=== PATIENT | female | born 1955 | race Caucasian/White ===

== ENCOUNTER 2024-04-07 17:36 | Emergency (ER) | payer MEDICARE, OTHER, SELFPAY ==
[2024-04-07 17:47] VITALS: BP 155/79
--- NOTE | 2024-04-07 18:46 | ED.GENMED ---
History of Present Illness
General
Chief Complaint: Abdominal Pain
Source: patient
Time Seen by Provider: 04/07/24 18:26
History of Present Illness
History of Present Illness:
68-year-old female with past medical history of GERD and hypothyroidism presenting to the ER at the request of her primary care provider for evaluation of right-sided abdominal pain that started earlier this morning accompanied with 1 episode of
nonbloody nonbilious emesis, symptoms continued into the afternoon and primary care wanted patient to be evaluated for possible appendicitis. Patient states at present time her pain is about a 2 out of 10. Denies any nausea currently. She denies
any urinary symptoms, bowel changes, fevers or infectious symptoms or any other concerns. She did not take anything for pain prior to arrival. No other concerns at this time.
Past History
Past History
ED Past Medical History: GERD and Hypothyroidism
ED Past Surgical History: Orthopedic and Other
Social History
Tobacco: Non-smoker
Alcohol: None
Drug: None
Personal:
Living: with family
Phy Exam
Physical Exam
Physical Exam:
GENERAL: Alert , in no apparent distress
EYE: clear conjunctiva b/l
HEAD: NCAT
ENT: mmm.
CARDIAC: Regular rate and rhythm .
LUNGS: Clear breath sounds bilaterally, no acute respiratory distress, no wheezes/rales/rhonchi
ABDOMEN: Soft, without focal tenderness, no r/g, no cvat, negative Winston sign, no tenderness at McBurney's point
NEUROLOGICAL: Alert and oriented
SKIN: Warm and dry, skin intact.
MUSCULOSKELETAL: well perfused.
PSYCH: Normal and appropriate interaction.
Scores
Heart Failure Risk
Heart Failure Risk Score: Not Applicable
Heart Score for Chest Pain Patients
STEMI patient?: Not applicable
Withdrawal Assessment of Alcohol
Withdrawal Assessment Completed?: Not applicable
Course
Orders/Labs/Results
Orders:
Orders
04/07/24 18:28
CT Abd/Pel (IV only)-[facility] only Urgent
Comment:
Reason For Exam: right sided abd pain, vomiting
04/07/24 18:57
Complete Blood Count/With Diff Urgent
Comprehensive Metabolic Panel Urgent
Lipase Urgent
UA Reflex to Culture [Urinalysis Reflex To Culture] Urgent
Date Specimen was Collected: 04/07/24
Time Specimen was Collected: 18:57
Urine Microscopic Reflex Cult Urgent
04/07/24 19:50
0.9% Sodium Chloride 1000 ml [Nss] 1,000 ml IV BOLUS
04/07/24 21:18
Ketorolac [Toradol] 30 mg IV NOW STA
04/07/24 21:35
Tamsulosin [Flomax] 0.4 mg PO NOW STA
Abnormal Lab Results
04/07/24
18:57
WBC 11.9 H 10^3/uL
(4.8-10.8)
Hgb 11.7 L g/dL
(12.0-16.0)
Hct 35.8 L %
(37.0-47.0)
MCV 73.7 L fL
(81.0-99.0)
MCH 24.1 L pg
(27.0-31.0)
MCHC 32.7 L g/dL
(33.0-37.0)
RDW 17.4 H %
(11.5-14.5)
Absolute Neuts (auto) 10.3 H 10^3/uL
(1.4-6.5)
Absolute Lymphs (auto) 0.9 L 10^3/uL
(1.2-3.4)
Neutrophils % 86.7 H %
(42.2-75.2)
Lymphocytes % 7.3 L %
(20.5-51.1)
BUN 19 H mg/dl
(7-17)
Creatinine 1.1 H mg/dL
(0.6-1.0)
Glucose 120 H mg/dl
(70-99)
Calcium 10.5 H mg/dl
(8.4-10.2)
Urine Ketones 1+ A
(Negative)
Ur Occult Blood Reflex 1+ A
(Negative)
Urine RBC 3-6 A /HPF
(0-2)
Urine Bacteria (Reflex) Few A
(Negative)
04/07/24 18:57
04/07/24 18:57
Vital Signs
Initial and Last Documented VS:
Initial Vital Signs
Temp Pulse Resp BP Pulse Ox
98.0 F 65 18 155/79 98
04/07/24 17:47 04/07/24 17:47 04/07/24 17:47 04/07/24 17:47 04/07/24 17:47
Last Documented Vital Signs
Temp Pulse Resp BP Pulse Ox
98.0 F 69 25 139/68 95
04/07/24 17:47 04/07/24 21:39 04/07/24 21:39 04/07/24 21:39 04/07/24 21:30
MDM/Problems Addressed
Differential Diagnosis Includes:
Appendicitis, renal/ureteral colic, cholecystitis, diverticulitis
MDM/Problems Addressed:
68-year-old female presenting to the emergency department for evaluation of abdominal pain that started earlier today accompanied with 1 episode of nonbloody nonbilious emesis. At time of my exam patient's symptoms seem to be improved. She denies
any nausea and is noting pain is mostly resolved. She is declining anything for symptoms at this time. Will obtain a CT scan to further evaluate. Reassessment and disposition pending.
*Radiology
Radiology exam reviewed: radiology read reviewed
*Pulse Oximetry
Patient hypoxic: no
*Critical Care Note
Total Time (30-74mins, 75-104mins- exclusive of procedures): Not Applicable
Comment
Comment:
Patient's labs reveal a mild leukocytosis as well as mild ALFONZO. 1 L of IV fluids ordered. CT pending. Disposition pending.
Patient Management
Escalation/DeEscalation of care consider admission/obs:
Patient CT scan shows a 3 mm right UVJ stone with mild right hydronephrosis. Noted a little bit of increased back pain following CT so 30 mg Toradol IV was ordered. Patient states she feels comfortable to be discharged home. Patient was a tablet
of Flomax prior to discharge. Percocet, Flomax and Zofran were sent as prescriptions to patient's pharmacy. Information for urology was provided. Return precautions discussed. Stable for discharge home.
ED Attending Note
-
Portions of this chart may have been created with voice recognition software.� Occasional wrong word or��sound alike� substitutions may have occurred due to the inherent limitations of voice recognition software.
Discharge Plan
Departure
Patient Disposition: Home (Routine Discharge)
Date of Disposition: 04/07/24
Time of Disposition: 21:35
Patient with high blood pressure during this ER visit?: Yes
Discharge Problem:
Ureterolithiasis
Instructions: Kidney Stones (DC)
Prescriptions:
New
tamsulosin [Flomax] 0.4 mg capsule
0.4 mg PO DAILY Qty: 15 0RF
oxycodone-acetaminophen [Percocet] 5-325 mg tablet
1 tab PO Q6HPRN PRN (Reason: pain) Qty: 5 0RF
ondansetron 4 mg tablet,disintegrating
4 mg PO TIDPRN PRN (Reason: nausea/vomiting) Qty: 10 0RF
Referrals:
Pelon Agrawal DO [Family Provider] -
Justino Mars MD [Active] -
Interventions
Interventions:
*Risk Screen - Suicide Last Done: 04/07/24 18:48
*General Assessment Last Done: 04/07/24 18:48
*Neglect/Abuse Screening Last Done: 04/07/24 18:48
*ED COVID-19 Vaccine History Last Done: 04/07/24 18:48
*Nursing Disposition Last Done: 04/07/24 21:53
HU-Jpqmsn-Lohjcepqjc Assessment Last Done: 04/07/24 19:11
Discharge Date and Time
Discharge Date/Time: 04/07/24 21:54
Print Language: WOLOF
[2024-04-07 18:47] VITALS: BMI 32.0
[2024-04-07 19:11] LABS: Urine Albumin Negative (Neg - Trace); Urine Bilirubin Negative (Negative); Urine Character Clear (Clear); Urine Color Yellow; Urine Glucose Negative (Negative); Urine Ketone 1+ (Negative); Urine Leukocyte Negative (Negative); Urine Nitrite Negative (Negative); Urine Occult Blood 1+ (Negative); Urine Specific Gravity 1.025 (<1.030); Urine Urobilinogen Negative (Neg - 1+)
[2024-04-07 19:12] LABS: % Basophils 0.3 % (0-2); % Eosinophils 0.1 % (0-6); % Immature Granulocytes 0.3 % (0-0.5); % Lymphocytes 7.3 % (20.5-51.1); % Monocytes 5.3 % (1.7-9.3); % Neutrophils 86.7 % (42.2-75.2); Absolute Lymphocytes 0.9 10^3/uL (1.2-3.4); Absolute Monocytes 0.6 10^3/uL (0.1-0.6); Absolute Neutrophils 10.3 10^3/uL (1.4-6.5); Hematocrit 35.8 % (37.0-47.0); Hemoglobin 11.7 g/dL (12.0-16.0); Mean Corp Hgb Conc. 32.7 g/dL (33.0-37.0); Mean Corpuscular Hgb 24.1 pg (27.0-31.0); Mean Corpuscular Volume 73.7 fL (81.0-99.0); Mean Platelet Volume 9.8 fL (7.4-10.4); Nucleated Red Blood Cells % 0 %; Platelet Count 295 10^3/uL (130-400); Red Blood Cell Count 4.86 10^6/uL (4.20-5.40); Red Cell Dist. Width 17.4 % (11.5-14.5); White Blood Cell Count 11.9 10^3/uL (4.8-10.8)
[2024-04-07 19:15] VITALS: BP 119/63
[2024-04-07 19:24] LABS: Urine Mucus Few; Urine Squamous Cell 0-2 /LPF (Few)
[2024-04-07 19:25] LABS: Urine Bacteria Few (Negative); Urine White Cell 0-2 /HPF (0-5)
[2024-04-07 19:30] LABS: ALT (SGPT) 22 U/L (0-35); AST (SGOT) 22 U/L (14-36); Albumin 4.1 g/dl (3.5-5.0); Alkaline Phosphatase 78 U/L (38-126); Blood Urea Nitrogen 19 mg/dl (7-17); Calcium 10.5 mg/dl (8.4-10.2); Carbon Dioxide 24 mmol/L (22-30); Chloride 103 mmol/L (98-107); Estimated Creatinine Clearance 53 ml/min; Glucose 120 mg/dl (70-99); Potassium 4.1 mmol/L (3.5-5.1); Sodium 138 mmol/L (135-145); Total Bilirubin 0.4 mg/dl (0.2-1.3); Total Protein 6.5 g/dl (6.3-8.2); eGFR 55.42
[2024-04-07 19:32] LABS: Lipase 63 U/L (23-300)
[2024-04-07] MEDS: NSS 1000 IV (19:57)
[2024-04-07 20:00] VITALS: BP 114/65
[2024-04-07] MEDS: TORADOL 30 MG IV (21:22)
[2024-04-07 21:39] VITALS: BP 139/68
[2024-04-07] MEDS: FLOMAX 0.4 MG PO (21:39)
== END 2024-04-07 21:54 | disposition home or self-care (01) ==
LOC: EMR 17:36
PROVIDERS: Physician Assistant Medical; EMERGENCY PHYSICIAN Emergency Medicine; FAMILY PHYSICIAN Family Medicine
DX: R10.9 Unspecified abdominal pain (principal); K21.9 Gastro-esophageal reflux disease without esophagitis; E03.9 Hypothyroidism, unspecified; N20.1 Calculus of ureter
CPT/HCPCS: 99284; 96374; 96361; 74177; 80053; 81003; 81015; 83690; 85025; Q9967